=== PATIENT | male | born 1950 | race Caucasian/White ===

== ENCOUNTER 2018-02-07 13:05 | Emergency (ER) | payer MEDICARE, OTHER, SELFPAY ==
[2018-02-07] VITALS (15 sets, daily range): BP systolic 74–126; BP diastolic 58–96; PULSE 64–94; RESP 12–20; TEMP 36.8; O2SAT 95–100; BMI 28.0
--- NOTE | 2018-02-07 13:30 | DI.RAD.S_ITS ---
PROCEDURE: XR CHEST 2V INDICATIONS: syncope TECHNIQUE: 2 views of the chest were acquired. COMPARISON: None. FINDINGS: Surgical changes and devices: Port-A-Cath from right sided approach with tip in the distal SVC. Lungs and pleura: No pleural effusions or pneumothorax. Lungs are clear. Mediastinum: Mediastinal contours are normal. Heart size is normal. Bones and chest wall: No suspicious bony abnormalities. Soft tissues appear unremarkable. IMPRESSION: Port-A-Cath in normal position, but no acute disease over the chest. Dictated by: Osbaldo Maldonado M.D. on 02/07/2018 at 14:06 Approved by: Osbaldo Maldonado M.D. on 02/07/2018 at 14:17
[2018-02-07] MEDS: SODIUM CHLORIDE 0.9% 500 ML 1000 ML IV (13:34)
[2018-02-07] MEDS: ASPIRIN 81 MG TAB 243 MG PO (13:34)
[2018-02-07 13:43] LABS: Add Manual Diff / Slide Review NO; Basophils Percent Auto 0.6 % (0-2); Hematocrit 38.5 % (41-53); Hemoglobin 13.1 g/dL (13.5-17.5); Lymphocytes Percent Auto 17.3 % (25-40); Mean Corpuscular HGB Conc 34.1 % (30-36); Mean Corpuscular Hemoglobin 31.8 PG (26-34); Mean Corpuscular Volume 93.1 fL (80-100); Monocytes Percent Auto 10.8 % (3-14); Neutrophils Absolute Auto 5300 /uL (3000-5900); Neutrophils Percent Auto 70.3 % (50-75); Platelet Count 265 X10^3/uL (150-400); Red Blood Cell Count 4.14 X10^6/uL (4.5-5.9); Red Cell Distribution Width 15.1 % (11.6-14.8); White Blood Cell Count 7.6 X10^3/uL (4.5-11.0)
[2018-02-07 13:49] LABS: Alanine Aminotransferase 29 IU/L (21-72); Albumin 3.5 g/dL (3.5-5.0); Albumin Globulin Ratio 1.3 (1.0-2.8); Alkaline Phosphatase 68 U/L (38-126); Aspartate Aminotransferase 26 IU/L (17-59); Bilirubin Total 0.6 mg/dL (0.2-1.3); Blood Urea Nitrogen 8 mg/dL (9-20); Calcium 8.7 mg/dL (8.4-10.2); Carbon Dioxide 23 mmol/L (22-32); Chloride 105 mmol/L (98-107); Estimated Glomerular Filt Rate > 60.0 mL/min (>60); Globulin 2.8 g/dL (1.7-4.1); Glucose 96 mg/dL (80-110); HEMOLYSIS 18 (0-50); Potassium 4.1 mmol/L (3.4-5.1); Sodium 140 mmol/L (137-145); Total Protein 6.3 g/dL (6.3-8.2)
[2018-02-07 14:02] LABS: Troponin I 0.621 ng/mL (0.01-0.034)
[2018-02-07 15:32] LABS: Troponin I 0.594 ng/mL (0.01-0.034)
[2018-02-07 17:41] LABS: Troponin I 0.535 ng/mL (0.01-0.034)
--- NOTE | 2018-02-07 18:00 | ED_ITS ---
HPI - Syncope General Chief Complaint: Syncope Stated Complaint: Syncope History of Present Illness HPI narrative: HPI 67-year-old man with stage IV prostate cancer (last chemotherapy 4 weeks ago) and CAD (multivessel, stenting x 4 yesterday in lieu of a CABG due to the patient's comorbidities) presents after 10 seconds on syncopal episode, currently complaining of weakness and diaphoresis consistent with an NH 3 years prior. Patient reports he is had multiple episodes of syncope over the last months. Patient is under the active care of a manuscripts archivist. Patient has known ischemic cardiomyopathy. * Denies chest pain, shortness of breath, double vision, neck pain, vertigo, headache, arm pain, arm paresthesias, arm numbness, or focal weakness or sensory at change now or the time of their event. * Denies recent chiropractic manipulation of their neck, neck trauma or strains. * Denies a history of seizures. No incontinence today, denies post-syncope confusion. * PCP - Dr. Teran, manuscripts archivist - Dr. Watt, application performance engineer - Dr. Dobson ([phone]). M/S/F/SocHx notable for: please see HPI; remainder reviewed with patient and in chart. ROS: Negative constitutional, eye, cardiovascular, pulmonary, GI, , MSK, skin , neurologic, psychiatric, endocrine unless noted in the HPI. Exam Gen: Pleasant, non-toxic appearing, resting comfortably. HEENT: NC, AT, PEERL, EOMI. Resp: Clear to auscultation bilaterally with a normal work of breathing and no accessory muscle usage. Card: Regular rate and rhythm with no murmurs rubs or gallops, extremities are warm and well perfused, no JVD. Negative symptomatic orthostatics. GI: Nontender to palpation throughout all quadrants, nondistended : Deferred MSK: No visible deformities, strength and tone WNL. Skin: pale, otherwise normal color with no visible lesions Neuro: Gen AO x 3, no facial asymmetry, no gaze preference, no slurring of speech. Pupils equal and reactive, EOMI, no facial asymmetry, no nystagmus, phonation intact, SCM 5/5 bilaterally. Cerebellar: bilateral upper extremities without dysmetria. Psych: Mood and affect appropriate. Labs / Imaging (pertinent): WBC 7.6, HB 13.1, NA 140, K 4.1, troponin (1:37 PM) 0.621, troponin (2:40 PM) 0.594, troponin (5:07 PM) 0.535 EKG (1:11 PM): SR at [address]-segment elevations or depressions, T- wave inversions or new LBBB. ME interval 156 msec, QTc 426 msec, no delta waves , epsilon waves, coved or saddle ST-segment changes in leads V1-3, preseptal or inferior lead Q-waves, biphasic P-waves, or T-wave inversions; no LVH. EKG (2:05 PM): SR 69 bpm, no significant changes from prior ECG. MDM Previous chart, nursing note, and vitals reviewed. A: 67-year-old man with stage IV prostate cancer (last chemotherapy 4 weeks ago ) and CAD (multivessel, stenting x 4 yesterday in lieu of a CABG due to the patient's comorbidities) presents after 10 seconds on syncopal episode, currently complaining of weakness and diaphoresis consistent with an NH 3 years prior. DDx and evaluation: * Anemia - Hemoglobin clinically within normal limits. * Cardiac - 1) ACS - patient with an unchanging EKG, resolution symptoms, and down trending troponin. Discussed patient's care with Dr. Watt, the patient's manuscripts archivist, the downtrend troponin is felt to be secondary to the patient's recent cardiac catheterization and given the patient's overall comorbidities no further evaluations presently appropriate, 2) EKG labs and history without evidence of AV-block, WPW syndrome, Brugada syndrome, HCM, Long or Short QT- syndrome, or arrhythmogenic RV dysplasia. Heart sounds WNL on exam, no evidence of valvular abnormalities by history or auscultation. * Obstructive - Doubt PE, tamponade, or pulmonary hypertension based upon lack of shortness of breath, chest pain, or historical risk factors on history and the absence of hypoxemia, tachycardia, hypotension, or JVD on exam. * Vascular - As there are no identifiable risk factors on history (injury risk factors, vertiginous symptoms, diplopia, vision changes, TIA risk factors or prior similar events) further evaluation of a possible vertebrobasilar insufficiency. Furthermore, as the patient denies neck pain, recent neck trauma , and there is no evidence of a partial Last's syndrome, a carotid or vertebral dissection is felt to be unlikely and imaging is not indicated. Similarly, the absence of focal arm symptoms and symmetric perfusion of the upper extremities effectively excludes emergent evaluation of any possible subclavian steal syndrome. Lastly, given the absence of chest pain aortic dissection further evaluation of any possible dissection is not warranted. * Electrolyte - Electrolytes clinically within normal limits. * Hypotension (hypovolemia vs vasovagal vs autonomic instability) - SBP clinically within normal limits, no symptomatic changes with orthostatic maneuvers. * GOLF PLAYER ASSISTANT (CVA/TIA/Mass) - given the absence of headache, absence of reported transient symptoms c/w a TIA and the absence of a focal neurological deficit, further evaluation, including imaging is not currently warranted. * Seizure - given the absence of reported seizure history and a presentation today atypical for a seizure strongly doubt that this was the cause of the patient's event. * AAA - patient without any abdominal, groin, back or flank pain on history or exam, as such no further evaluation of this possible etiology is currently indicated. ED Course: * patient given 243 mg aspirin (took 81 mg aspirin this morning) and 500 ML normal saline. * Patient with stabilization of blood pressure, no further interventions. * Discuss case with Dr. Watt, the patient's manuscripts archivist. No further evaluation or intervention recommended. Disposition: discharge with PCP follow-up. Impression: syncope. (please reference below for remainder of encounter information) Related Data Home Medications Medication Instructions Recorded Confirmed Cmpd Medical Marijuana 1 dose BEDTIME 02/07/18 02/07/18 aspirin 81 mg PO QPM 02/07/18 02/07/18 atorvastatin 40 mg PO QPM 02/07/18 02/07/18 clopidogrel 75 mg PO DAILY 02/07/18 02/07/18 fluconazole 100 mg PO PRN PRN 02/07/18 02/07/18 isosorbide mononitrate 30 mg PO QAM 02/07/18 02/07/18 nitroglycerin 0.4 mg SUBLINGUAL Q5M PRN MDD 3 02/07/18 02/07/18 paroxetine HCl 20 mg PO DAILY 02/07/18 02/07/18 trazodone 50 mg PO BEDTIME PRN 02/07/18 02/07/18 Allergies Allergy/AdvReac Type Severity Reaction Status Date / Time No Known Drug Allergies Allergy Verified 02/07/18 13:13 [facility] Social History Smoking Status: Smoker, status unknown Exam Initial Vital Signs Initial Vital Signs: Vital Signs Temperature 98.3 F 02/07/18 13:13 Pulse Rate 86 02/07/18 13:13 Respiratory Rate 15 02/07/18 13:13 Blood Pressure 86/63 L 02/07/18 13:13 Pulse Oximetry 98 02/07/18 13:13 Course Orders Ordered: ED Orders 02/07/18 13:30 XR chest 2V Stat EKG-12 Lead Stat 02/07/18 13:33 EKG-12 Lead Stat 02/07/18 13:37 Complete Blood Count AUTO DIFF Stat Comprehensive Metabolic Panel Stat Troponin I Stat 02/07/18 14:40 Troponin I Stat 02/07/18 17:07 Troponin I Stat Sodium Chloride (Normal Saline 0.9%) 500 mls @ 1,000 mls/hr IV BOLUS PRN PRN Reason: Fluid replacement Last Infusion: 02/07/18 14:15 Dose: 0 mls/hr Admin: 02/07/18 13:34 Dose: 1,000 mls/hr Discontinued Medications Aspirin (Aspirin Chew) 243 mg PO NOW ONE Stop: 02/07/18 13:31 Last Admin: 02/07/18 13:34 Dose: 243 mg Vital Signs - 8 hr 02/07/18 13:13 02/07/18 13:16 02/07/18 13:31 Temperature 98.3 F Pulse Rate 86 80 73 Pulse Rate [Orthostatic Lying] Pulse Rate [Orthostatic Sitting] Pulse Rate [Orthostatic Standing] Respiratory Rate 15 16 18 Blood Pressure 86/63 L Blood Pressure [Orthostatic Lying] Blood Pressure [Orthostatic Sitting] Blood Pressure [Orthostatic Standing] Blood Pressure [Right Arm] 105/75 74/58 L Pulse Oximetry 98 99 96 02/07/18 13:50 02/07/18 14:17 02/07/18 14:34 Temperature Pulse Rate 73 68 66 Pulse Rate [Orthostatic Lying] Pulse Rate [Orthostatic Sitting] Pulse Rate [Orthostatic Standing] Respiratory Rate 15 20 14 Blood Pressure Blood Pressure [Orthostatic Lying] Blood Pressure [Orthostatic Sitting] Blood Pressure [Orthostatic Standing] Blood Pressure [Right Arm] 126/95 H 106/86 H 109/81 H Pulse Oximetry 99 98 98 02/07/18 15:08 02/07/18 15:33 02/07/18 16:00 Temperature Pulse Rate 65 66 72 Pulse Rate [Orthostatic Lying] Pulse Rate [Orthostatic Sitting] Pulse Rate [Orthostatic Standing] Respiratory Rate 14 15 15 Blood Pressure Blood Pressure [Orthostatic Lying] Blood Pressure [Orthostatic Sitting] Blood Pressure [Orthostatic Standing] Blood Pressure [Right Arm] 113/80 102/81 H 102/76 Pulse Oximetry 97 95 99 02/07/18 16:33 02/07/18 17:00 02/07/18 17:54 Temperature Pulse Rate 69 71 Pulse Rate [Orthostatic Lying] 69 Pulse Rate [Orthostatic Sitting] 88 Pulse Rate [Orthostatic Standing] 94 H Respiratory Rate 12 13 Blood Pressure Blood Pressure [Orthostatic Lying] 102/76 Blood Pressure [Orthostatic Sitting] 89/65 L Blood Pressure [Orthostatic Standing] 116/66 Blood Pressure [Right Arm] 107/96 H 106/78 Pulse Oximetry 98 100 02/07/18 17:57 Temperature Pulse Rate 64 Pulse Rate [Orthostatic Lying] Pulse Rate [Orthostatic Sitting] Pulse Rate [Orthostatic Standing] Respiratory Rate 17 Blood Pressure Blood Pressure [Orthostatic Lying] Blood Pressure [Orthostatic Sitting] Blood Pressure [Orthostatic Standing] Blood Pressure [Right Arm] 116/60 Pulse Oximetry 98 MDM - Syncope Lab Data Result diagrams: 02/07/18 13:37 02/07/18 13:37 Lab Results 02/07/18 02/07/18 02/07/18 Range/Units 13:37 13:37 14:40 WBC 7.6 (4.5-11.0) X10^3/uL RBC 4.14 L (4.5-5.9) X10^6/uL Hgb 13.1 L (13.5-17.5) g/dL Hct 38.5 L (41-53) % MCV 93.1 (80-100) fL MCH 31.8 (26-34) PG MCHC 34.1 (30-36) % RDW 15.1 H (11.6-14.8) % Plt Count 265 (150-400) X10^3/uL Neut % (Auto) 70.3 (50-75) % Lymph % (Auto) 17.3 L (25-40) % Kemper % (Auto) 10.8 (3-14) % Eos % (Auto) 1.0 L (2-4) % Baso % (Auto) 0.6 (0-2) % Neut # (Auto) 5300 (6735-3557) /uL Sodium 140 (137-145) mmol/L Potassium 4.1 (3.4-5.1) mmol/L Chloride 105 (98-107) mmol/L Carbon Dioxide 23 (22-32) mmol/L BUN 8 L (9-20) mg/dL Creatinine 0.80 (0.66-1.25) mg/dL Estimated GFR > 60.0 (>60) mL/min BUN/Creatinine Ratio 10.0 (6-22) Glucose 96 (80-110) mg/dL Calcium 8.7 (8.4-10.2) mg/dL Total Bilirubin 0.6 (0.2-1.3) mg/dL AST 26 (17-59) IU/L ALT 29 (21-72) IU/L Alkaline Phosphatase 68 (38-126) U/L Troponin I 0.621 H* 0.594 H* (0.01-0.034) ng/mL Total Protein 6.3 (6.3-8.2) g/dL Albumin 3.5 (3.5-5.0) g/dL Globulin 2.8 (1.7-4.1) g/dL Albumin/Globulin Ratio 1.3 (1.0-2.8) 02/07/18 Range/Units 17:07 WBC (4.5-11.0) X10^3/uL RBC (4.5-5.9) X10^6/uL Hgb (13.5-17.5) g/dL Hct (41-53) % MCV (80-100) fL MCH (26-34) PG MCHC (30-36) % RDW (11.6-14.8) % Plt Count (150-400) X10^3/uL Neut % (Auto) (50-75) % Lymph % (Auto) (25-40) % Kemper % (Auto) (3-14) % Eos % (Auto) (2-4) % Baso % (Auto) (0-2) % Neut # (Auto) (1686-6469) /uL Sodium (137-145) mmol/L Potassium (3.4-5.1) mmol/L Chloride (98-107) mmol/L Carbon Dioxide (22-32) mmol/L BUN (9-20) mg/dL Creatinine (0.66-1.25) mg/dL Estimated GFR (>60) mL/min BUN/Creatinine Ratio (6-22) Glucose (80-110) mg/dL Calcium (8.4-10.2) mg/dL Total Bilirubin (0.2-1.3) mg/dL AST (17-59) IU/L ALT (21-72) IU/L Alkaline Phosphatase (38-126) U/L Troponin I 0.535 H* (0.01-0.034) ng/mL Total Protein (6.3-8.2) g/dL Albumin (3.5-5.0) g/dL Globulin (1.7-4.1) g/dL Albumin/Globulin Ratio (1.0-2.8) Discharge Plan Departure Prescriptions: No Action fluconazole 100 mg Tablet 100 mg PO PRN PRN (Reason: yeast infection) RF: 0 atorvastatin 40 mg tablet 40 mg PO QPM RF: 0 trazodone 50 mg Tablet 50 mg PO BEDTIME PRN (Reason: Insomnia) RF: 0 isosorbide mononitrate 30 mg Tablet Extended Release 24 Hr 30 mg PO QAM RF: 0 clopidogrel 75 mg tablet 75 mg PO DAILY RF: 0 aspirin 81 mg Tablet,Delayed Release (Dr/Ec) 81 mg PO QPM RF: 0 paroxetine HCl 20 mg tablet 20 mg PO DAILY RF: 0 nitroglycerin 0.4 mg Tablet, Sublingual 0.4 mg SUBLINGUAL Q5M MDD 3 PRN (Reason: Chest Pain) RF: 0 Cmpd Medical Marijuana 5 mg 1 dose BEDTIME RF: 0
== END 2018-02-07 18:40 | disposition home or self-care (01) ==
PROVIDERS: Emergency Provider Emergency Medicine; PCP Student in an Organized Health Care Education/Training Program
DX: R55 Syncope and collapse (principal)
CPT/HCPCS: 36415; 71046; 80053; 82962; 84484; 85025; 93005; 93041; 96360; 99285